=== PATIENT | male | born 1975 | race Caucasian/White ===

== ENCOUNTER 2017-06-20 11:15 | Observation (INO) | payer OTHER ==
[2017-06-20] MEDS: NS 1,000 ML IV ×2 (12:30→15:53)
[2017-06-20] MEDS ORDERED: LIDOCAINE 2% INJ 100 MG/5 ML SDV (FOR ANES.) As Ordered (13:08)
[2017-06-20] MEDS ORDERED: PROPOFOL 500 MG/50 ML VIAL As Ordered (13:08)
[2017-06-20] MEDS ORDERED: fentaNYL 100 MCG/2 ML INJECTION (J3010) As Ordered (13:10)
[2017-06-20] MEDS ORDERED: PROPOFOL 200 MG/20 ML VIAL As Ordered (13:49)
[2017-06-20] MEDS: GASTROGRAFIN SOLUTION 30ML PO (16:08)
[2017-06-20] MEDS: GASTROGRAFIN SOLUTION 30ML (Q9963) PO (16:26)
[2017-06-20] MEDS ORDERED: ISOVUE-370 76% 100ML VIAL (Q9967) As Ordered (17:00)
== END 2017-06-20 18:45 | disposition home or self-care (01) ==
LOC: M OPP 11:15 → M MS4PR 15:17 → M OPP 15:09 → M MS4PR 15:10
DX: K44.9 Diaphragmatic hernia without obstruction or gangrene (principal); K21.9 Gastro-esophageal reflux disease without esophagitis; R13.10 Dysphagia, unspecified; I10 Essential (primary) hypertension; G47.30 Sleep apnea, unspecified; F41.9 Anxiety disorder, unspecified; Z79.899 Other long term (current) drug therapy
CPT/HCPCS: 43235

== ENCOUNTER 2018-01-23 05:51 | Inpatient (IN) | payer OTHER ==
[2018-01-23] MEDS: NS 1,000 ML IV ×5 (06:45→21:40)
[2018-01-23] MEDS: MORPHINE 4 MG/ML 1ML VIAL/SYRINGE (J2270) IV ×2 (06:45→07:43)
[2018-01-23] MEDS: ONDANSETRON 4MG/2ML VIAL (J2405) IV (06:45)
[2018-01-23 06:49] LABS: BASO % 0.3 % (0.0-1.0); EOS # 0.1 10^3/uL (0.0-0.50); EOS % 0.7 % (0.0-3.0); HEMATOCRIT 42.4 % (42.0-52.0); HEMOGLOBIN 14.8 g/dl (13.5-17.5); IMMATURE GRANULOCYTE % 0.3 % (0-3.0); LYMPH # 1.2 10^3/uL (1.5-4.5); MEAN CORPUSCULAR HEMOGLOBIN 32.3 pg (27.0-33.0); MEAN CORPUSCULAR HGB CONC 34.9 g/dl (32.0-36.5); MEAN CORPUSCULAR VOLUME 92.6 fl (80.0-96.0); MONO # 0.5 10^3/uL (0.0-0.8); MONO % 5.4 % (0.0-5.0); NEUTROPHILS % 81.3 % (36.0-66.0); PLATELET COUNT, AUTOMATED 219 10^3/uL (150-450); RED BLOOD COUNT 4.58 10^6/uL (4.30-6.10); RED CELL DISTRIBUTION WIDTH 11.9 % (11.5-14.5); WHITE BLOOD COUNT 9.8 10^3/uL (4.0-10.0)
[2018-01-23 07:10] LABS: ALBUMIN 3.7 GM/DL (3.2-5.2); ALBUMIN/GLOBULIN RATIO 0.93 (1.00-1.93); ALKALINE PHOSPHATASE 86 U/L (45-117); ALT/SGPT 107 U/L (12-78); ANION GAP 11 MEQ/L (8-16); AST/SGOT 70 U/L (7-37); BILIRUBIN,TOTAL 0.6 MG/DL (0.2-1.0); BLOOD UREA NITROGEN 8 MG/DL (7-18); CARBON DIOXIDE LEVEL 25 MEQ/L (21-32); CHLORIDE LEVEL 103 MEQ/L (98-107); CREATININE FOR GFR 1.13 MG/DL (0.70-1.30); GLOMERULAR FILTRATION RATE > 60.0 (>60); GLUCOSE, FASTING 166 MG/DL (70-100); LIPASE 5881 U/L (73-393); SODIUM LEVEL 139 MEQ/L (136-145); TOTAL PROTEIN 7.7 GM/DL (6.4-8.2)
[2018-01-23 07:13] LABS: LACTIC ACID SEPSIS PROTOCOL 2.4 MMOL/L (0.4-2.0)
[2018-01-23] MEDS: METOCLOPRAMIDE INJ 10MG/2ML VIAL (J2765) IV ×4 (07:43→23:33)
[2018-01-23] MEDS: HYDROMORPHONE HCL 0.5 MG/ 0.5 ML SYRINGE (J1170 PER 1) IV ×3 (08:35→21:41)
[2018-01-23] MEDS: ENOXAPARIN 40 MG/0.4 ML SYRINGE (J1650) SC (09:00)
[2018-01-23] MEDS ORDERED: clonazePAM 0.5 MG TAB PO (09:00)
[2018-01-23] MEDS: MULTIVITAMINS/MINERALS THERAP 1 TAB PO ×2 (09:00→10:00)
[2018-01-23] MEDS ORDERED: LORATADINE 10 MG TAB PO (09:00)
[2018-01-23] MEDS ORDERED: GLUCAGON FOR INJ 1 MG VIAL (J1610) SC (09:15)
[2018-01-23] MEDS ORDERED: ONDANSETRON 4MG/2ML VIAL (J2405) IV (09:15)
[2018-01-23] MEDS ORDERED: BISACODYL 5 MG TAB PO (09:15)
[2018-01-23] MEDS ORDERED: GLUCOSE 4 GM CHEW TABLET PO (09:15)
[2018-01-23] MEDS ORDERED: DEXTROSE 50% 50 ML SYRINGE IV (09:15)
[2018-01-23] MEDS ORDERED: MORPHINE 4 MG/ML 1ML VIAL/SYRINGE (J2270) IV (09:15)
[2018-01-23] MEDS: GI COCKTAIL 50ML BTL(HYOSCYAMINE/MAALOX/LIDOCAINE VISCOUS)(1:3:1) PO (09:25)
[2018-01-23] MEDS: SUCRALFATE SUSP 1GM/10ML UD PO ×4 (09:25→23:32)
[2018-01-23] MEDS ORDERED: NS 1,000 ML IV (09:31)
[2018-01-23] MEDS ORDERED: EPIDURAL/PCA KEYS XX (09:45)
[2018-01-23] MEDS ORDERED: NALBUPHINE HCL 10 MG/ML AMP (J2300) IV (09:45)
[2018-01-23] MEDS ORDERED: NALOXONE INJ 0.4 MG/1 ML VIAL (J2310) IV (09:45)
[2018-01-23] MEDS ORDERED: diphenhydrAMINE INJ 50MG/ML VIAL (J1200) IV (09:45)
[2018-01-23] MEDS: OXAZEPAM 15 MG CAP PO ×3 (10:00→23:33)
[2018-01-23] MEDS: THIAMINE HCL 200 MG/2 ML VIAL (J3411) IV (10:00)
[2018-01-23] MEDS ORDERED: MORPHINE 2 MG/ML 1ML SYRINGE (J2270) As Ordered (10:02)
[2018-01-23 12:10] LABS: CHOLESTEROL LEVEL 212 MG/DL (<200); CHOLESTEROL RISK RATIO 4.608 (<5); HDL CHOLESTEROL 46 MG/DL (>40); LDL CHOLESTEROL 126.8 MG/DL (<100); NON-HDL-C 166 MG/DL; TRIGLYCERIDES LEVEL 196 MG/DL (<150)
[2018-01-23] MEDS: MORPHINE 1MG/ML IN 0.9% NACL 100ML IV BAG IV (12:31)
[2018-01-23] MEDS: FOLIC ACID 1 MG in NS 50 ML IV (14:00)
[2018-01-23] MEDS ORDERED: GI COCKTAIL 50ML BTL(HYOSCYAMINE/MAALOX/LIDOCAINE VISCOUS)(1:3:1) PO (14:00)
[2018-01-23] MEDS: NICOTINE 21MG/24HR 1 EA TRANSDERMAL TD (16:23)
[2018-01-23] MEDS: PANTOPRAZOLE 40MG INJ (PROTONIX) (C9113) IV (21:40)
[2018-01-24] MEDS: NS 1,000 ML IV (00:59)
[2018-01-24] MEDS: HYDROMORPHONE HCL 0.5 MG/ 0.5 ML SYRINGE (J1170 PER 1) IV ×5 (01:00→20:48)
[2018-01-24 03:28] LABS: BEDSIDE GLUCOSE 109 MG/DL (70-105)
[2018-01-24 06:14] LABS: BEDSIDE GLUCOSE 101 MG/DL (70-105)
[2018-01-24] MEDS: OXAZEPAM 15 MG CAP PO ×3 (06:31→17:20)
[2018-01-24] MEDS: METOCLOPRAMIDE INJ 10MG/2ML VIAL (J2765) IV ×4 (06:31→20:47)
[2018-01-24] MEDS: SUCRALFATE SUSP 1GM/10ML UD PO ×3 (06:32→17:20)
[2018-01-24 06:58] LABS: BASO % 0.2 % (0.0-1.0); EOS # 0.1 10^3/uL (0.0-0.50); EOS % 1.1 % (0.0-3.0); HEMATOCRIT 41.4 % (42.0-52.0); HEMOGLOBIN 13.9 g/dl (13.5-17.5); IMMATURE GRANULOCYTE % 0.4 % (0-3.0); LYMPH # 0.8 10^3/uL (1.5-4.5); LYMPH % 8.8 % (24.0-44.0); MEAN CORPUSCULAR HEMOGLOBIN 32.2 pg (27.0-33.0); MEAN CORPUSCULAR HGB CONC 33.6 g/dl (32.0-36.5); MEAN CORPUSCULAR VOLUME 95.8 fl (80.0-96.0); MONO # 0.7 10^3/uL (0.0-0.8); MONO % 7.8 % (0.0-5.0); NEUTROPHILS % 81.7 % (36.0-66.0); PLATELET COUNT, AUTOMATED 151 10^3/uL (150-450); RED BLOOD COUNT 4.32 10^6/uL (4.30-6.10); RED CELL DISTRIBUTION WIDTH 12.1 % (11.5-14.5); WHITE BLOOD COUNT 8.5 10^3/uL (4.0-10.0)
[2018-01-24] MEDS ORDERED: SENOKOT S TAB PO (07:00)
[2018-01-24] MEDS ORDERED: MOM 30ML SUSPENSION UDC PO (07:00)
[2018-01-24 07:19] LABS: ALKALINE PHOSPHATASE 69 U/L (45-117); ALT/SGPT 61 U/L (12-78); ANION GAP 7 MEQ/L (8-16); AST/SGOT 33 U/L (7-37); BILIRUBIN,TOTAL 0.8 MG/DL (0.2-1.0); BLOOD UREA NITROGEN 7 MG/DL (7-18); CALCIUM LEVEL 7.8 MG/DL (8.5-10.1); CARBON DIOXIDE LEVEL 26 MEQ/L (21-32); CHLORIDE LEVEL 107 MEQ/L (98-107); CREATININE FOR GFR 0.97 MG/DL (0.70-1.30); GLOMERULAR FILTRATION RATE > 60.0 (>60); GLUCOSE, FASTING 107 MG/DL (70-100); LIPASE 3069 U/L (73-393); MAGNESIUM LEVEL 1.6 MG/DL (1.8-2.4); POTASSIUM SERUM 4.1 MEQ/L (3.5-5.1); SODIUM LEVEL 140 MEQ/L (136-145); TOTAL PROTEIN 6.7 GM/DL (6.4-8.2)
[2018-01-24 07:29] LABS: ALBUMIN 2.8 GM/DL (3.2-5.2); ALBUMIN/GLOBULIN RATIO 0.72 (1.00-1.93)
[2018-01-24] MEDS ORDERED: PROPRANOLOL 60 MG LA CAP PO (09:00)
[2018-01-24] MEDS: PROPRANOLOL 80 MG LA CAP PO (09:20)
[2018-01-24] MEDS: THIAMINE HCL 200 MG/2 ML VIAL (J3411) IV (09:21)
[2018-01-24] MEDS: clonazePAM 0.5 MG TAB PO (09:21)
[2018-01-24] MEDS: MULTIVITAMINS/MINERALS THERAP 1 TAB PO (09:21)
[2018-01-24] MEDS: LORATADINE 10 MG TAB PO (09:21)
[2018-01-24] MEDS: NICOTINE 21MG/24HR 1 EA TRANSDERMAL TD (09:22)
[2018-01-24] MEDS: ENOXAPARIN 40 MG/0.4 ML SYRINGE (J1650) SC (09:22)
[2018-01-24] MEDS: FOLIC ACID 1 MG in NS 50 ML IV (12:37)
[2018-01-24 14:55] LABS: HEPATITIS B SURFACE ANTIGEN NEGATIVE (NEGATIVE)
[2018-01-24 15:22] LABS: HEPATITIS B CORE ANTIBODY IGM NEGATIVE (NEGATIVE)
[2018-01-24 15:22] LABS: HEPATITIS C VIRUS ABY INDEX 0.3 INDEX (<0.8)
[2018-01-24 15:25] LABS: HEPATITIS A ANTIBODY IGM NEGATIVE (NEGATIVE)
[2018-01-24] MEDS: PANTOPRAZOLE 40MG INJ (PROTONIX) (C9113) IV (20:47)
[2018-01-24] MEDS: amLODIPine 5 MG TAB PO (21:06)
[2018-01-25] MEDS: SUCRALFATE SUSP 1GM/10ML UD PO ×4 (01:00→17:55)
[2018-01-25] MEDS: OXAZEPAM 15 MG CAP PO ×4 (01:00→17:55)
[2018-01-25] MEDS: HYDROMORPHONE HCL 0.5 MG/ 0.5 ML SYRINGE (J1170 PER 1) IV ×2 (02:28→20:13)
[2018-01-25 06:48] LABS: BASO % 0.4 % (0.0-1.0); EOS # 0.1 10^3/uL (0.0-0.50); EOS % 1.3 % (0.0-3.0); HEMATOCRIT 38.9 % (42.0-52.0); HEMOGLOBIN 13.1 g/dl (13.5-17.5); IMMATURE GRANULOCYTE % 0.6 % (0-3.0); LYMPH # 1.4 10^3/uL (1.5-4.5); MEAN CORPUSCULAR HEMOGLOBIN 32.4 pg (27.0-33.0); MEAN CORPUSCULAR HGB CONC 33.7 g/dl (32.0-36.5); MEAN CORPUSCULAR VOLUME 96.3 fl (80.0-96.0); MONO % 9.9 % (0.0-5.0); NEUTROPHILS # 7.4 10^3/uL (1.8-7.7); NEUTROPHILS % 73.8 % (36.0-66.0); PLATELET COUNT, AUTOMATED 150 10^3/uL (150-450); RED BLOOD COUNT 4.04 10^6/uL (4.30-6.10); RED CELL DISTRIBUTION WIDTH 11.9 % (11.5-14.5)
[2018-01-25 07:09] LABS: ALBUMIN 2.5 GM/DL (3.2-5.2); ALBUMIN/GLOBULIN RATIO 0.68 (1.00-1.93); ALKALINE PHOSPHATASE 64 U/L (45-117); ALT/SGPT 44 U/L (12-78); ANION GAP 8 MEQ/L (8-16); AST/SGOT 25 U/L (7-37); BILIRUBIN,TOTAL 1.1 MG/DL (0.2-1.0); BLOOD UREA NITROGEN 6 MG/DL (7-18); CALCIUM LEVEL 7.8 MG/DL (8.5-10.1); CARBON DIOXIDE LEVEL 26 MEQ/L (21-32); CHLORIDE LEVEL 102 MEQ/L (98-107); CREATININE FOR GFR 1.01 MG/DL (0.70-1.30); GLOMERULAR FILTRATION RATE > 60.0 (>60); GLUCOSE, FASTING 102 MG/DL (70-100); LIPASE 834 U/L (73-393); MAGNESIUM LEVEL 1.5 MG/DL (1.8-2.4); POTASSIUM SERUM 3.1 MEQ/L (3.5-5.1); SODIUM LEVEL 136 MEQ/L (136-145); TOTAL PROTEIN 6.2 GM/DL (6.4-8.2)
[2018-01-25] MEDS: MULTIVITAMINS/MINERALS THERAP 1 TAB PO (08:29)
[2018-01-25] MEDS: PROPRANOLOL 80 MG LA CAP PO (08:29)
[2018-01-25] MEDS: clonazePAM 0.5 MG TAB PO (08:30)
[2018-01-25] MEDS: amLODIPine 5 MG TAB PO (08:30)
[2018-01-25] MEDS: LORATADINE 10 MG TAB PO (08:30)
[2018-01-25] MEDS: NICOTINE 21MG/24HR 1 EA TRANSDERMAL TD (08:31)
[2018-01-25] MEDS: ENOXAPARIN 40 MG/0.4 ML SYRINGE (J1650) SC (08:31)
[2018-01-25] MEDS: METOCLOPRAMIDE INJ 10MG/2ML VIAL (J2765) IV ×4 (08:32→20:13)
[2018-01-25] MEDS: THIAMINE HCL 200 MG/2 ML VIAL (J3411) IV (08:32)
[2018-01-25] MEDS: FOLIC ACID 1 MG TAB PO (10:52)
[2018-01-25] MEDS: POTASSIUM CHLORIDE 10 MEQ SR TABLET PO (10:52)
[2018-01-25] MEDS: MAG SULF 1GM/100ML (MAG RUN) 1 GM in APPROPRIATE DILUENT 1 EA IV ×2 (10:53→14:45)
[2018-01-25] MEDS ORDERED: MAGNESIUM SULFATE 1 GM/100 ML D5W BAG (10MG/ML) (J3475) As Ordered (14:38)
[2018-01-25] MEDS: PANTOPRAZOLE 40MG INJ (PROTONIX) (C9113) IV (20:13)
[2018-01-26] MEDS: SUCRALFATE SUSP 1GM/10ML UD PO ×2 (00:02→05:57)
[2018-01-26] MEDS: OXAZEPAM 15 MG CAP PO ×2 (00:02→05:57)
[2018-01-26 06:44] LABS: HEMATOCRIT 37.8 % (42.0-52.0); LYMPH % 11.4 % (24.0-44.0); MEAN CORPUSCULAR HEMOGLOBIN 32.6 pg (27.0-33.0); MEAN CORPUSCULAR HGB CONC 34.4 g/dl (32.0-36.5); MEAN CORPUSCULAR VOLUME 94.7 fl (80.0-96.0); NEUTROPHILS % 75.5 % (36.0-66.0); PLATELET COUNT, AUTOMATED 134 10^3/uL (150-450); RED BLOOD COUNT 3.99 10^6/uL (4.30-6.10); RED CELL DISTRIBUTION WIDTH 11.6 % (11.5-14.5); WHITE BLOOD COUNT 10.3 10^3/uL (4.0-10.0)
[2018-01-26 06:45] LABS: BASO % 0.3 % (0.0-1.0); EOS # 0.1 10^3/uL (0.0-0.50); IMMATURE GRANULOCYTE % 0.8 % (0-3.0); LYMPH # 1.2 10^3/uL (1.5-4.5); MONO # 1.1 10^3/uL (0.0-0.8); NEUTROPHILS # 7.8 10^3/uL (1.8-7.7)
[2018-01-26 07:04] LABS: ALBUMIN 2.2 GM/DL (3.2-5.2); ALBUMIN/GLOBULIN RATIO 0.51 (1.00-1.93); ALKALINE PHOSPHATASE 65 U/L (45-117); ALT/SGPT 45 U/L (12-78); ANION GAP 8 MEQ/L (8-16); AST/SGOT 36 U/L (7-37); BILIRUBIN,TOTAL 1.2 MG/DL (0.2-1.0); BLOOD UREA NITROGEN 6 MG/DL (7-18); CALCIUM LEVEL 8.1 MG/DL (8.5-10.1); CARBON DIOXIDE LEVEL 23 MEQ/L (21-32); CHLORIDE LEVEL 103 MEQ/L (98-107); CREATININE FOR GFR 0.96 MG/DL (0.70-1.30); GLOMERULAR FILTRATION RATE > 60.0 (>60); GLUCOSE, FASTING 124 MG/DL (70-100); LIPASE 1039 U/L (73-393); MAGNESIUM LEVEL 2.2 MG/DL (1.8-2.4); POTASSIUM SERUM 3.9 MEQ/L (3.5-5.1); SODIUM LEVEL 134 MEQ/L (136-145); TOTAL PROTEIN 6.5 GM/DL (6.4-8.2)
[2018-01-26] MEDS: METOCLOPRAMIDE INJ 10MG/2ML VIAL (J2765) IV (07:30)
[2018-01-26] MEDS: PROPRANOLOL 80 MG LA CAP PO (09:34)
[2018-01-26] MEDS: THIAMINE 100 MG TAB PO (09:34)
[2018-01-26] MEDS: FOLIC ACID 1 MG TAB PO (09:35)
[2018-01-26] MEDS: LORATADINE 10 MG TAB PO (09:35)
[2018-01-26] MEDS: MULTIVITAMINS/MINERALS THERAP 1 TAB PO (09:35)
[2018-01-26] MEDS: amLODIPine 5 MG TAB PO (09:35)
[2018-01-26] MEDS: clonazePAM 0.5 MG TAB PO (09:35)
[2018-01-26] MEDS: NICOTINE 21MG/24HR 1 EA TRANSDERMAL TD (09:36)
[2018-01-26] MEDS: ENOXAPARIN 40 MG/0.4 ML SYRINGE (J1650) SC (09:36)
== END 2018-01-26 12:15 | disposition home or self-care (01) | DRG 439 ==
LOC: M ED 05:51 → M ED INP 09:10 → M MS4PR 12:03 → M MS5PR 15:07
DX: K85.20 Alcohol induced acute pancreatitis without necrosis or infection (principal); E87.2 Acidosis; F41.9 Anxiety disorder, unspecified; I10 Essential (primary) hypertension; K44.9 Diaphragmatic hernia without obstruction or gangrene; K21.9 Gastro-esophageal reflux disease without esophagitis; M54.5 Low back pain; F43.10 Post-traumatic stress disorder, unspecified; Z87.891 Personal history of nicotine dependence; F10.10 Alcohol abuse, uncomplicated; Z79.899 Other long term (current) drug therapy; J30.9 Allergic rhinitis, unspecified; K31.84 Gastroparesis